=== PATIENT | female | born 1960 | race Hispanic/Latino ===

== ENCOUNTER 2018-08-01 07:02 | Emergency (ER) | payer BC ==
--- NOTE | 2018-08-01 07:47 | EDPHYS ---
Physician Documentation [facility] Name: Fang Ochoa Age: 58 yrs Sex: Female : 1960 Arrival Date: 08/01/2018 Time: 07:03 Bed 3 Private MD: ED Physician Shane Ervin HPI: 08/01 07:25 This 58 yrs old Female presents to ER via Unassigned with complaints of CPR. kdr 07:25 EMS reports that the patient was well yesterday and the she awoke this morning at about kdr 6:15 c/o heartburn. According to her son, the patient stated she felt like she was going to vomit. She started gagging and had three episodes. EMS was called and they found her to be pale and diaphoretic but awake. She then became unresponsive and CPR was initiated. The patient was intubated and an IO was started in the right proximal tibia. On arrival, the patient was in asystole and unrepsonsive.. Historical: - Allergies: 07:00 No Known Allergies; hj - Home Meds: 07:00 Unable to obtain [Active]; hj - PMHx: 07:00 Hypertension; Hyperlipidemia; hj - PSHx: 07:00 Hernia repair; ; hj - Immunization history:: Adult Immunizations unknown. - Social history:: Smoking status: unknown. - Ebola Screening: : Unable to complete screening because. ROS: 07:25 Constitutional: Unobtainable kdr 07:25 Unable to obtain ROS due to patient is on ventilator. Exam: 07:25 Constitutional: This is a well developed, well nourished patient obese patient who is kdr unresponsive Head/Face: Normocephalic, atraumatic. Chest/axilla: Normal chest wall appearance and motion. Nontender with no deformity. No lesions are appreciated. 07:25 Cardiovascular: Rhythm: asystole, Heart sounds: Absent. Vital Signs: 07:02 Temp 93.4(A); Weight 108.86 kg; Height 5 ft. 4 in. (162.56 cm); hj 07:04 Pulse 0; Pulse Ox 60% on ETT ambu; hj 07:06 Pulse 0; Pulse Ox 65% on ETT ambu; hj 07:13 Pulse 0; Pulse Ox 68% on ETT ambu; hj 07:15 Pulse 0; Pulse Ox 60% on ETT ambu; hj 07:17 Pulse 0; hj 07:33 Temp 88.7; hj 08:12 Pulse 0; Resp 0; Pulse Ox 92% on ETT ambu; hj 07:02 Body Mass Index 41.20 (108.86 kg, 162.56 cm) hj Stan Coma Score: 07:00 Eye Response: none(1). Verbal Response: none(1). Motor Response: none(1). Total: 3. hj MDM: 07:25 Data reviewed: vital signs, nurses notes. Counseling: I had a detailed discussion with kdr the patient and/or guardian regarding:. ED course: See the nursing notes. On initial evaluation, it was noted that the breath sounds are distant and air is heard over the stomach. When the ET tube was visualized, it was not seen to pass through the cords. The patient was extubated and re-intubated on the second attempt. Good color change was noted and breath sounds were appropriate and improved. Resuscitation was continued but ultimately was unsuccessful. The family (three children) were present in the ED and notified. 07:47 Patient medically screened. kdr 08:06 ED course: See the nursing notes for ACLS medications given.. kdr Administered Medications: 07:02 Drug: EPINEPHrine 0.1mg/mL 1:10,000 1 mg Route: IVP; Site: right antecubital; hj 08:12 Follow up: Pulse 0 bpm; Resp 0 bpm; Pulse Ox 92% lpm hj 08:12 Follow up: Response: No adverse reaction; no pulse after 2 mins hj 07:04 Drug: EPINEPHrine 0.1mg/mL 1:10,000 1 mg Route: IVP; Site: right antecubital; hj 08:13 Follow up: Response: No adverse reaction; no pulse after 2 mins hj 07:05 Drug: NS 0.9% 1000 ml Route: IV; Rate: 1000 ml; Site: right antecubital; hj 07:19 Follow up: IV Status: Order to discontinue infusion; IV Intake: 750ml hj 07:06 Drug: EPINEPHrine 0.1mg/mL 1:10,000 1 mg Route: IVP; Site: right antecubital; hj 07:08 Follow up: Response: No adverse reaction; no pulse after 2 mins hj 07:07 Drug: Sodium Bicarbonate 1 amp Route: IVP; Site: right antecubital; hj 07:10 Follow up: Response: No adverse reaction hj 07:10 Drug: Sodium Bicarbonate 1 amp Route: IVP; Site: right antecubital; hj 07:15 Follow up: Response: No adverse reaction hj 07:13 Drug: EPINEPHrine 0.1mg/mL 1:10,000 1 mg Route: IVP; Site: right antecubital; hj 07:15 Follow up: Response: No adverse reaction; no pulse after 2 mins hj 07:15 Drug: EPINEPHrine 0.1mg/mL 1:10,000 1 mg Route: IVP; Site: right antecubital; hj 07:17 Follow up: Response: No adverse reaction; nokpulse after 2 mins Point of Care Testing: Blood Glucose: 07:02 Blood Glucose: 306 mg/dL; Ranges: Critical Glucose Levels:Adult <50 mg/dl or >400 mg/dl <40 mg/dl or >180 mg/dl Disposition: 07:46 . kdr Disposition: Patient pronounced on 08/01/18 07:19 by Shane Ervin. Impression: Cardiac arrest. - Released to Home. Signatures: Shane Ervin MD MD kdr Hortensia Madrid RN RN Leo Rodrigues RN RN Corrections: (The following items were deleted from the chart) 10:26 07:00 PMHx: Dialysis; [facility] 12:54 07:47 08/01/2018 07:47 Patient pronounced on 08/01/2018 at 07:19 by Shane Ervin. Impression: Cardiac arrest. Released to Home. kdr
--- NOTE | 2018-08-01 07:47 | ER ---
Nurse's Notes [facility] Name: Fang Ochoa Age: 58 yrs Sex: Female : 1960 Arrival Date: 08/01/2018 Time: 07:03 Bed 3 Private MD: Diagnosis: Cardiac arrest Presentation: 08/01 07:00 Presenting complaint: EMS states: ongoing CPR by [facility] from home, on scene pt is hj pale and diaphoretic around 6:30 am, per family pt was well last night, no complaints, this morning pt was getting ready for work when she complained of heart burn; around 6:45 am, pt was down with no pulse, CPR initiated by EMS with IO placement on RLE, ET in place 7.0, 23 at the T; BGL- 153 on scene; epi x2 given TUNGSTEN TENDER last dose 700;. 07:00 Care prior to arrival: Oral intubation, CPR manually performed by EMS and is still in hj progress Medication(s) given: epi x 2, last dose EMS 700;. Compressions began at 06:45. 07:00 Method Of Arrival: EMS: [facility] hj 07:00 Acuity: BOBO 1 hj 07:00 Transition of care: patient was not received from another setting of care. Onset of hj symptoms was August 01, 2018. Risk Assessment: Do you want to hurt yourself or someone else? Unable to obtain. 07:00 Initial Sepsis Screen: Does the patient meet any 2 criteria? No. Patient's initial hj sepsis screen is negative. Does the patient have a suspected source of infection? No. Patient's initial sepsis screen is negative. Triage Assessment: 07:00 General: Appears distressed, obese, Behavior is unresponsive. Pain: Unable to use pain hj scale. Patient is unresponsive. EENT: No signs and/or symptoms were reported regarding the EENT system. Neuro: Level of Consciousness is unresponsive. Cardiovascular: Capillary refill is > 3 seconds Rhythm is asystole. Respiratory: Airway via oral intubation Respiratory pattern is apnea. GI: Abdomen is non-distended, obese. : No signs and/or symptoms were reported regarding the genitourinary system. Derm: Skin is clammy, Skin is pale, Skin temperature is cold. Musculoskeletal: No signs and/or symptoms reported regarding the musculoskeletal system. Historical: - Allergies: 07:00 No Known Allergies; hj - Home Meds: 07:00 Unable to obtain [Active]; hj - PMHx: 07:00 Hypertension; Hyperlipidemia; hj - PSHx: 07:00 Hernia repair; ; hj - Immunization history:: Adult Immunizations unknown. - Social history:: Smoking status: unknown. - Ebola Screening: : Unable to complete screening because. Screenin:00 Abuse screen: Denies threats or abuse. Denies injuries from another. Nutritional hj screening: unknown. 07:00 Tuberculosis screening: unknown. Fall Risk Secondary diagnosis (15 points). hj Assessment: 07:00 CPR assessment: unresponsive, pupils fixed \T\ dilated, no respiratory effort, intubated, hj Ambu ventilation, cyanotic, pulses absent w/ compressions. 07:00 Cardiac rhythm is asystole. General: Appears distressed, Behavior is unresponsive. hj Neuro: Level of Consciousness is unresponsive. EENT:. Cardiovascular: Capillary refill is > 3 seconds Pulses are absent in right radial artery, left radial artery, left carotid pulse and right carotid pulse Rhythm is asystole. Respiratory: Airway via oral intubation Respiratory pattern is apnea. GI: Abdomen is non-distended, obese. : No signs and/or symptoms were reported regarding the genitourinary system. Derm: Skin is clammy, Skin is pale, Skin temperature is cool. Musculoskeletal: No signs and/or symptoms reported regarding the musculoskeletal system. 07:00 Reassessment: [facility] wheeled to room 3 an going CPR pt from home, down since 6:45 hj am, chest compression on going with ambu bagging to ET; pt was transferred to stretcher; pulse check- aystole, chest compression resumed, present in room are ED MD, RT, primary nurse, CN, collision repair technician;. 07:02 Reassessment: epi dose # 1 given R AC per verbal order;. hj 07:04 Reassessment: pulse check- asystole; epi dose # 2 given per verbal order;. hj 07:04 Reassessment: axillary temp taken- 93.4; 92% O2 sat, via ET tube, desat's to 60%; hj unable to appreciate BP;. 07:05 Reassessment: NS bolus 1L started on R AC;. hj 07:06 Reassessment: pulse check- asystole, epi dose # 3 given via verbal order;. hj 07:07 Reassessment: Na Bicarb given per verbal order;. hj 07:08 Reassessment: ED MD re checked ET placement; ordered to prepare for re insertion; RT at bedside to assist;. 07:10 Reassessment: ET was re inserted by ED MD; 7.5; 23 at the T;. hj 07:10 Reassessment: Na bicarb dose given per verbal order;. hj 07:13 Reassessment: pulse checked- asystole; epi dose #4 given per verbal order;. hj 07:15 Reassessment: pulse checked- asystole; epi dose # 5 given per verbal order;. hj 07:17 Reassessment: pulse check- asystole. hj 07:19 Reassessment: ED MD called TOD;. hj 07:45 Reassessment: per ED MD order; ET tube was removed and pt was cleaned and prepped for family to view pt;. 07:50 Reassessment: family at bedside;. hj 08:15 Reassessment: [employer] coordinator was called; spoke with Rose Barragan; provided with family next of kin info and phone number;. 10:10 Reassessment: Family at bedside. Family reports they have yet to make a decision which [facility] home they would like to use. Family actively discussing the matter at this time and verbalizes understanding to notify ED staff once their decision has been made. Vital Signs: 07:02 Temp 93.4(A); Weight 108.86 kg; Height 5 ft. 4 in. (162.56 cm); hj 07:04 Pulse 0; Pulse Ox 60% on ETT ambu; hj 07:06 Pulse 0; Pulse Ox 65% on ETT ambu; hj 07:13 Pulse 0; Pulse Ox 68% on ETT ambu; hj 07:15 Pulse 0; Pulse Ox 60% on ETT ambu; hj 07:17 Pulse 0; hj 07:33 Temp 88.7; hj 08:12 Pulse 0; Resp 0; Pulse Ox 92% on ETT ambu; hj 07:02 Body Mass Index 41.20 (108.86 kg, 162.56 cm) Vitals: 07:02 Cardiac Rhythm Assessment [place]. hj 07:19 Cardiac Rhythm Assessment [place]. hj Stan Coma Score: 07:00 Eye Response: none(1). Verbal Response: none(1). Motor Response: none(1). Total: 3. hj ED Course: 07:00 Patient has correct armband on for positive identification. Bed in low position. hj 07:00 Accessed IO on RLE Clean \T\ dry. Flushes easily. hj 07:00 ACLS. hj 07:02 Arm band placed on right wrist. hj 07:02 Inserted saline lock: 20 gauge in right antecubital area, using aseptic technique. hj 07:03 Patient arrived in ED. am2 07:18 Leo Rodrigues, YI is Primary Nurse. hj 07:25 Shane Ervin MD is Attending Physician. kdr 07:[address] [facility] to have residential aide come to er. bd 07:28 Triage completed. hj 07:45 IV discontinued, intact, bleeding controlled, No redness/swelling at site. Pressure hj dressing applied. 07:46 Shane Ervin MD is Pronouncing Provider. kdr Administered Medications: 07:02 Drug: EPINEPHrine 0.1mg/mL 1:10,000 1 mg Route: IVP; Site: right antecubital; hj 08:12 Follow up: Pulse 0 bpm; Resp 0 bpm; Pulse Ox 92% lpm hj 08:12 Follow up: Response: No adverse reaction; no pulse after 2 mins hj 07:04 Drug: EPINEPHrine 0.1mg/mL 1:10,000 1 mg Route: IVP; Site: right antecubital; hj 08:13 Follow up: Response: No adverse reaction; no pulse after 2 mins hj 07:05 Drug: NS 0.9% 1000 ml Route: IV; Rate: 1000 ml; Site: right antecubital; hj 07:19 Follow up: IV Status: Order to discontinue infusion; IV Intake: 750ml hj 07:06 Drug: EPINEPHrine 0.1mg/mL 1:10,000 1 mg Route: IVP; Site: right antecubital; hj 07:08 Follow up: Response: No adverse reaction; no pulse after 2 mins hj 07:07 Drug: Sodium Bicarbonate 1 amp Route: IVP; Site: right antecubital; hj 07:10 Follow up: Response: No adverse reaction hj 07:10 Drug: Sodium Bicarbonate 1 amp Route: IVP; Site: right antecubital; hj 07:15 Follow up: Response: No adverse reaction hj 07:13 Drug: EPINEPHrine 0.1mg/mL 1:10,000 1 mg Route: IVP; Site: right antecubital; hj 07:15 Follow up: Response: No adverse reaction; no pulse after 2 mins hj 07:15 Drug: EPINEPHrine 0.1mg/mL 1:10,000 1 mg Route: IVP; Site: right antecubital; hj 07:17 Follow up: Response: No adverse reaction; nokpulse after 2 mins Point of Care Testing: Blood Glucose: 07:02 Blood Glucose: 306 mg/dL; hj Ranges: Intake: 07:19 IV: 750ml; Total: 750ml. Outcome: 07:19 Outcome Patient hj 07:19 Patient : Time of 07:19 Pronounced by Shane Ervin MD 07:19 Condition: 12:54 Patient : Body to home. 12:54 Patient left the ED. Signatures: Georgina William Kevin, MD MD [facility] Hortensia Madrid RN RN Leo Rodrigues RN RN Nataly Hernández am2 Corrections: (The following items were deleted from the chart) 07:36 07:02 EKG completed in triage. Results shown to . [facility] 08:58 07:02 Reassessment: epi given R AC per verbal order; [facility] 08:58 07:04 Reassessment: pulse check- asystole; with order of 2nd round of epi; epi given hj per verbal order; 58 07:06 Reassessment: pulse check- asystole, epi given via verbal order; [facility] 08:58 07:13 Reassessment: pulse checked- asystole; epi dose given per verbal order; [facility] 09:41 07:02 Temp 93.4F Axillary; [facility] 10:26 07:00 PMHx: Dialysis; [facility]
[2018-08-01 13:05] VITALS: TEMP 88.7
[2018-08-01 13:07] VITALS: O2SAT 92
== END 2018-08-01 12:54 | disposition expired ==
LOC: ER 07:02
DX: I46.9 Cardiac arrest, cause unspecified (principal)
CPT/HCPCS: 92950; 96374; 96375; 99285